=== PATIENT | female | born 1960 | race Caucasian/White ===

== ENCOUNTER 2016-11-23 07:53 | Day surgery (SDC) | payer OTHER ==
[~2016-11-23] VITALS: Ht 162.6 cm; Wt 101.1 kg
[~2016-11-23 07:53] MED LIST: ALBU18HF INH; ESTR1TAB24 PO; FLUT12AE8 IH; IPRA4AER IH; LISI40TA PO
[2016-11-23] MEDS ORDERED: EPHEDrine/NS 5 mg/mL 5 mL Syringe ONE (07:54)
[2016-11-23] MEDS ORDERED: fentaNYL-PF 50 mCg/mL 2 mL Inj ONE (07:54)
[2016-11-23] MEDS ORDERED: Propofol 10,000 mCg/mL 20 mL Inj ONE (07:54)
[2016-11-23] MEDS ORDERED: Remifentanil 1 mg/3 mL Inj ONE (07:54)
[2016-11-23] MEDS ORDERED: Ondansetron 2 mg/mL 2 mL Inj ONE (07:54)
[2016-11-23] MEDS ORDERED: Rocuronium 10 mg/mL 5 mL Inj ONE (07:54)
[2016-11-23] MEDS ORDERED: Succinylcholine Chloride 20 mg/mL 5 mL Inj ONE (07:54)
[2016-11-23] MEDS ORDERED: Phenylephrine 10,000 mCg/mL Inj ONE (07:54)
[2016-11-23] MEDS: Lactated Ringer's 1,000 ML IV SCH ×2 (08:20→10:24)
[2016-11-23 08:46] VITALS: BP 140/70; PULSE 71; RESP 16; O2SAT 97
--- NOTE | 2016-11-23 08:53 | PCM.HPANE ---
Patient Data Surgeon Admitting Provider: Attending Provider:Catrachito Ledezma MD Primary Care Physician:Other,Physician Other Provider:Jessy Dietrich Anesthesia Reason for Visit Postmenopausal Bleeding Ht/WT & BMI Height (Feet): 5 Height (Inches): 4.00 Weight (Kilograms): 101.1 Body Mass Index 38.00 Allergies Coded Allergies: acetaminophen (Verified Allergy, Severe, RASH, 11/21/16) oxycodone (Verified Allergy, Severe, RASH, 11/21/16) Past Anesthesia History Anesthesia History: Denies:: Anesthesia Reactions, Malignant Hyperthermia Diabetes History Hx Diabetes?: No MRSA MRSA: No Medications Hypertension Medication: Yes (LISINOPRIL) Reported Medications Albuterol Sulfate (Ventolin HFA Inhaler)200 Puff/18 Gm Inhaler1 Puff INH Q4 PRN For Wheezing #1 INHALER Ref 0 11/21/16 Lisinopril 40 Mg [id number] Mg PO DAILY 30 Days Ref 0 11/21/16 Fluticasone Propionate (Flovent HFA 110 mcg)12 Gm Aer.w.adap1 Puff IH BID #12 GM Ref 0 11/21/16 Estradiol 1 Mg Tablet1 Mg PO DAILY Ref 0 11/21/16 Albuterol/Ipratropium (Combivent Respimat Inhal [place])120 Spr/4 Gm Inhaler1 Puff IH QID PRN & PRN #1 INH Ref 0 11/21/16 Discontinued Reported Medications Hydrochlorothiazide 25 Mg [id number] Mg PO DAILY 30 Days Ref 0 11/21/16 History History of ENT Problems?: No HEENT History: Denies:: Abnormal Airway Cataracts Difficult Intubation Dysphagia Glaucoma Hearing Problem Sinus Problem TMJ Denture Type: None Teeth Condition: Within Normal Limits Hx of Heart Problems?: Yes Cardiovascular History: Positive for:: Hypertension Denies:: Heart Murmur Irregular Heartbeat (PT REPORTS PALPITATIONS) Hx of Respiratory Problem?: Yes Respiratory History: Positive for:: Asthma COPD Dyspnea (KRAUSE) Use of Inhalers / NEBS Denies:: Use of C-PAP Machine Hx Neurologic Problems?: No Hx of GI Problems?: Yes Other GI Pertinent History: C/OF ABD PAIN Hx of Problems?: No Female Hx: Denies:: Currently Endometriosis (S/P ENDOMETRIAL BX) Skin History: Denies:: History Skin Disorders? Pressure Ulcers Hx Musculoskeletal Problems?: No Hx of Psycho/Social Problems?: No Hx Surgeries?: Yes (ENDOMETRIAL BX,C/S X2) Hx Any Other Health Problems?: Yes Other History: Denies:: Cancer Endocrine Disease Hospitalization Thyroid Disease Hx Diabetes: No Have You Smoked inLast 12 mo: NoApprox How Many Cigarettes/day: 1 PPD X 40YRS Stop/Bang S-Snoring: Do You Snore Loudly: No T-Tired: feel tired, fatigued: No O-Obsered: Observed not breath: No P-Blood Pressure: treated: Yes B- Body Mass Index > 35 kg/m2: Yes A- Age over 50: Yes N- Neck Large Circumference: Yes G- Gender Male: No ANNA MARIE Total Score: 4 Risk Assessment Category Category 1A: Patient has history of documented sleep apnea, and HAS NOT received any narcotic, sedative or anesthesia administration during this stay. Category 1B: Patient has history of documented sleep apnea, and HAS received any narcotic , sedative or anesthesia administration during this stay Category 2: Patient has SUSPECTED Obstructive Sleep Apnea, and HAS received any narcotic , sedative or anesthesia administration during this stay. Category 3: Patient has SUSPECTED Obstructive Sleep Apnea and HAS NOT received narcotic, sedative or anesthesia administration during this stay. Category 4: Outpatient in Procedural Areas with known sleep apnea or who screen positive for High Risk via the STOP/BANG questionnaire. Exam Exam Vital Signs Vital Signs Date Time Temp Pulse Resp B/P Pulse Ox O2 Delivery O2 Flow Rate FiO2 11/23/16 08:46 36.2 71 16 140/70 97 Room Air General Appearance: Alert, Oriented X3, Cooperative HEENT/AIRWAY: MP 2, Neck Movement (from), Mouth Opening (wnl) Lungs: Clear to Auscultation Heart: Exam Unremarkable Meds/Labs/Diagnostics Admission Meds Current Medications Lactated Ringer's (Lr) 1,000 ml @ 120 mls/hr Q8H20M IV Last administered on t 08:20; Start 11/23/16 at 05:00; Stop 11/23/16 at 13:19 Plan Impression Patient chart reviewed, patient interviewed and anesthestic plan with risks, benefits, and alternatives discussed, and informed consent obtained. ASA Physical Status: ASA2 Mod Systemic Disease Anesthetic Plan: GA Bene/Risks/Altern/Consents: Yes HP Complete Prior to Induction: Yes Dung Lou MD Nov 23, 2016 08:53
[2016-11-23] MEDS ORDERED: Lactated Ringer's 500 ML IV PRN (10:23)
[2016-11-23] MEDS ORDERED: Lactated Ringer's 1,000 ML IV SCH (10:23)
[2016-11-23] MEDS ORDERED: hydrALAZINE 20 mg/mL Inj IVPUSH PRN (10:25)
[2016-11-23] MEDS ORDERED: fentaNYL-PF 50 mCg/mL 2 mL Inj IVPUSH PRN (10:25)
[2016-11-23] MEDS ORDERED: Phenylephrine 10,000 mCg/mL Inj IVPUSH PRN (10:25)
[2016-11-23] MEDS ORDERED: EPHEDrine Sulfate 50 mg/mL Inj IVPUSH PRN (10:25)
[2016-11-23] MEDS ORDERED: Labetalol 5 mg/mL 4 mL Inj IV PRN (10:25)
[2016-11-23] MEDS ORDERED: HYDROmorphone 1 mg/mL Inj IVPUSH PRN (10:25)
[2016-11-23] MEDS ORDERED: Ondansetron 2 mg/mL 2 mL Inj IVPUSH PRN ×2 (10:25→11:40)
[2016-11-23] MEDS ORDERED: Atropine 0.4 mg/mL Inj IVPUSH PRN (10:25)
[2016-11-23] MEDS ORDERED: Dexamethasone 4 mg/mL Inj IVPUSH PRN (10:25)
[2016-11-23] MEDS ORDERED: Lactated Ringer's 1,000 ML IV ONE (10:52)
[2016-11-23] MEDS ORDERED: Vasopressin 20 Unit/mL Inj IM ONE (10:59)
[2016-11-23 11:36] VITALS: BP 138/59; PULSE 91; RESP 14; O2SAT 96
[2016-11-23 11:40] VITALS: BP 140/60; PULSE 90; RESP 15; O2SAT 94
[2016-11-23] MEDS ORDERED: oxyCODONE-Acetamin 5-325 mg Tablet PO PRN (11:40)
[2016-11-23] MEDS ORDERED: diphenhydrAMINE 25 mg Capsule PO PRN (11:40)
--- NOTE | 2016-11-23 11:44 | PCM.DIMED ---
Discharge Instructions Date of Service Nov 23, 2016 Dates of Hospitalization Diet Discharge Diet: No restrictions Activity Discharge Activity: No restrictions Call your provider Call your provider for: Fever or Chills, Shortness of breath, Bleeding, Chest pain, Vomitting, Excessive diarrhea, Weakness (unilateral) Patient Instructions Follow-up with PCP in: 2 weeks Catrachito Ledezma MD Nov 23, 2016 11:44
[2016-11-23 11:51] VITALS: BP 137/63; PULSE 87; RESP 16; O2SAT 92
[2016-11-23] MEDS ORDERED: MetoCLOpramide 5 mg/mL 2 mL Inj ONE (11:58)
[2016-11-23 12:16] VITALS: BP 120/63; PULSE 80; RESP 16; O2SAT 93
--- NOTE | 2016-11-23 12:21 | PCM.ANEP1 ---
Post Anesthesia PACU Phase 1 Assessment Vital Signs Vital Signs Date Time Temp Pulse Resp B/P Pulse Ox O2 Delivery O2 Flow Rate FiO2 11/23/16 11:51 87 16 137/63 92 Room Air 11/23/16 11:40 90 15 140/60 94 Room Air 11/23/16 11:36 36.0 91 14 138/59 96 Room Air 11/23/16 08:46 36.2 71 16 140/70 97 Room Air Anesthetic Administered: GA Level of Alertness: Awake, talking THAKUR's with Equal Strength: Yes Pain: Yes Nausea or Vomiting: No CV Function & Hydration Stable: No Airway Device: Oxygen Delivery: Room Air Lungs: Normal Air Movement PACU Phase 2 Assessment Complications: No Follow up Care: No Patient Instructions Provided: N/A Dung Lou MD Nov 23, 2016 12:21
[2016-11-23 12:52] VITALS: BP 127/62; PULSE 74; RESP 16; O2SAT 94
--- NOTE | 2016-11-23 14:21 | OP ---
[address] [address] OPERATIVE REPORT PATIENT: ROC VILLALOBOS : 1960 MR#: [id number] ADMIT: 11/23/2016 JOB ID: [id number] DATE OF SURGERY: 11/23/2016 PROCEDURE: Operative hysteroscopy, endometrial curettage. PREOPERATIVE DIAGNOSIS(ES): Postmenopausal bleeding. POSTOPERATIVE DIAGNOSIS(ES): Postmenopausal bleeding. SURGEON: Catrachito Ledezma MD ANESTHESIA: Dung Lou MD. General. ESTIMATED BLOOD LOSS: 20 mL. ESTIMATED URINE OUTPUT: 100 mL. ESTIMATED FLUIDS: 1200 mL of lactated Ringer. Estimated fluid deficit using MyoSure device 500 mL of normal saline. Vasopressin used during the case: 4 units total. COMPLICATIONS: None. FINDINGS: Stenotic cervix. Normal sized uterus. Atrophic changes of endometrium. No clinically suspicious lesions like polyps or hypertrophy were identified during hysteroscopy. PROCEDURE: The patient was taken to the operating room, where she underwent general anesthesia without difficulty. The patient was placed in the dorsal lithotomy position using Mateo stirrups. She was prepped and draped in the usual surgical fashion. Time-out was performed verifying correct patient, correct procedure. Two Reardon retractors were placed anteriorly and posteriorly in the vagina. The cervix was identified and grasped with a tenaculum. It was found to be stenotic. A solution of vasopressin was used with 20 units of vasopressin diluted with 100 of mL of normal saline; a total of 16 mL of solution was used corresponding to about 4 units of vasopressin. It was injected intracervically to facilitate cervical dilation and to provide better hemostasis. With Hegar dilators the cervix was dilated to the size of 8 mm. Using MyoSure hysteroscope the uterine cavity was reviewed and series of images was obtained. The findings were as mentioned above. Then, LITE size MyoSure removal device was used to sample the endometrium and the specimen was sent to Pathology. Total estimated fluid deficit during the procedure was 500 mL of normal saline. When the procedure was completed, all the instruments were removed. Good hemostasis was achieved. The patient was repositioned back into the supine position. She tolerated the procedure well and was transferred to the recovery room in stable condition.
--- NOTE | 2016-11-26 16:49 | PATH ---
SURGICAL PATHOLOGY Attending Physician:Catrachito Ledezma MD CASE STATUS: Signed Out PATIENT NAME: ROC VILLALOBOS PID: [id number] : 1960 DATE COLLECTED:11/23/2016 21:10 SPECIMEN: Endometrium, Curettage CLINICAL HISTORY: POSTMENOPAUSAL BLEEDING 1). ENDOMETRIAL SAMPLING FINAL DIAGNOSIS: 1.ENDOMETRIAL SAMPLING: INACTIVE ENDOMETRIUM AND MULTIPLE FRAGMENTS OF SMOOTH MUSCLE CONSISTENT WITH MYOMETRIUM. Negative for hyperplasia, atypia and malignancy. ICD10 N95.0 GROSS DESCRIPTION: The specimen is received in formalin, labeled with the patient's name, sublabeled as endometrial sampling, and consists of multiple fragments of syed-white, glistening, rubbery tissue (2.5 x 2.5 x 0.5 cm in aggregate). Section code: (A) tissue. Specimen entirely submitted. ([id number]) MICRO DESCRIPTION: See diagnosis. ICD-9 CODES: CPT CODES: 1: 53363 Electronically Signed Out Rae Delgado MD [facility] [address], [place] [address] Technical component performed at [facility], [address] [place] [address] Ave[address], [place], [address]
== END 2016-11-23 23:59 | disposition home or self-care (01) ==
LOC: SAS 07:53
PROVIDERS: ATTEND Legal Medicine
PROC: 0UDB8ZX Extraction of Endometrium, Via Natural or Artificial Opening Endoscopic, Diagnostic (ICD-10-PCS; principal; 2016-11-23 10:00)
DX: N95.0 Postmenopausal bleeding (principal); E66.9 Obesity, unspecified; J44.9 Chronic obstructive pulmonary disease, unspecified; F17.210 Nicotine dependence, cigarettes, uncomplicated; Z68.38 Body mass index [BMI] 38.0-38.9, adult; I10 Essential (primary) hypertension; J45.909 Unspecified asthma, uncomplicated
CPT/HCPCS: 58558; 88305; J0330; J2175; J2250; J2370; J2405; J2765; J3010; J7120